=== PATIENT | male | born 1970 | race Caucasian/White ===

== ENCOUNTER 2020-06-17 16:22 | Emergency (ER) | payer OTHER ==
[2020-06-17 19:07] LABS: HEMOGLOBIN 14.3 gm/dl (14.0-17.5); RED BLOOD COUNT 4.9 M/UL (4.20-5.50); WHITE BLOOD COUNT 8.5 K/UL (4.5-11.0)
[2020-06-17 19:22] LABS: BUN/CREATININE RATIO 10 (0-10)
[2020-06-17] MEDS ORDERED: NAPROSYN500 MG PO (21:09)
== END 2020-06-17 21:49 | disposition home or self-care (01) ==
LOC: ER1 16:22
PROVIDERS: Physician Assistant
DX: G40.909 Epilepsy, unspecified, not intractable, without status epilepticus (principal); S22.32XA Fracture of one rib, left side, initial encounter for closed fracture; I10 Essential (primary) hypertension; Z88.6 Allergy status to analgesic agent; Z79.899 Other long term (current) drug therapy; X58.XXXA Exposure to other specified factors, initial encounter; Z87.891 Personal history of nicotine dependence
CPT/HCPCS: 71101; 80053; 80307; 85025; 93005; 96374; 96375; 99284; G0480; J1885; J3411; J3475; J7030; Q0177

== ENCOUNTER 2020-06-19 14:09 | Emergency (ER) | payer OTHER ==
[~2020-06-19 14:09] MED LIST: NAPROSYN500 MG PO
[2020-06-19 16:45] LABS: HEMOGLOBIN 13.4 gm/dl (14.0-17.5); RED BLOOD COUNT 4.65 M/UL (4.20-5.50)
[2020-06-19 17:10] LABS: BUN/CREATININE RATIO 13 (0-10)
[2020-06-19] MEDS ORDERED: KEPPRA500 MG PO (17:37)
== END 2020-06-19 18:32 | disposition home or self-care (01) ==
LOC: ER1 14:09
PROVIDERS: Physician Assistant
DX: R56.9 Unspecified convulsions (principal); S22.32XA Fracture of one rib, left side, initial encounter for closed fracture; F10.10 Alcohol abuse, uncomplicated; Y90.0 Blood alcohol level of less than 20 mg/100 ml; Z88.5 Allergy status to narcotic agent; Z79.899 Other long term (current) drug therapy; W22.8XXA Striking against or struck by other objects, initial encounter; Y92.009 Unspecified place in unspecified non-institutional (private) residence as the place of occurrence of the external cause
CPT/HCPCS: 70450; 80053; 80307; 83735; 85025; 99285; G0480

== ENCOUNTER 2020-07-02 14:45 | Emergency (ER) | payer OTHER ==
[~2020-07-02 14:45] MED LIST changes: +KEPPRA500 MG PO
[2020-07-02 16:14] LABS: HEMOGLOBIN 14.7 gm/dl (14.0-17.5); RED BLOOD COUNT 5.03 M/UL (4.20-5.50); WHITE BLOOD COUNT 8.6 K/UL (4.5-11.0)
[2020-07-02 16:35] LABS: BUN/CREATININE RATIO 9 (0-10)
== END 2020-07-02 17:57 | disposition home or self-care (01) ==
LOC: ER1 14:45
PROVIDERS: Physician Assistant Medical
DX: G40.909 Epilepsy, unspecified, not intractable, without status epilepticus (principal); I10 Essential (primary) hypertension; Z79.899 Other long term (current) drug therapy; Z88.8 Allergy status to other drugs, medicaments and biological substances
CPT/HCPCS: 70450; 71045; 80053; 80307; 81001; 82550; 82553; 83605; 83874; 84484; 85025; 93005; 99284; G0480

== ENCOUNTER 2020-07-05 11:10 | Emergency (ER) | payer OTHER ==
[2020-07-05 11:40] LABS: HEMOGLOBIN 14.2 gm/dl (14.0-17.5); RED BLOOD COUNT 4.87 M/UL (4.20-5.50); WHITE BLOOD COUNT 7.9 K/UL (4.5-11.0)
[2020-07-05 11:59] LABS: BUN/CREATININE RATIO 10 (0-10)
== END 2020-07-05 13:43 | disposition home or self-care (01) ==
LOC: ER1 11:10
PROVIDERS: Physician Assistant
DX: G40.909 Epilepsy, unspecified, not intractable, without status epilepticus (principal); N18.9 Chronic kidney disease, unspecified; Z88.6 Allergy status to analgesic agent; Z79.899 Other long term (current) drug therapy
CPT/HCPCS: 80053; 80307; 82550; 82553; 83874; 84484; 85025; 99284; G0480